=== PATIENT | female | born 1985 | race African-American/Black ===

== ENCOUNTER 2016-12-04 15:45 | Emergency (ER) | payer SELFPAY ==
[2016-12-04 15:49] VITALS: BMI 27.8
--- NOTE | 2016-12-04 17:08 | DR.GENAD ---
HPI - PCP Primary Care Physician: KIT - HPI Comment HPI Comment: PATIENT SAID CHEST PAIN RADIATES TO HER NECK. HER FOREARM IS SWOLLEN BUT NO TRAUMA REPORTED. RUNNING FEVER TODAY.BP ELEVATED IN ED. OUT OF HER BP MEDICATION FOR ONE WEEK. - Complaint/Symptoms Chief Complaint Doctors Comments: WEAKNESS LEFT FOREARM AND CHEST TIGHTNESS THAT STARTED AT WORK TODAY BEFORE COMING. Chief Complaint:: PT. STATES SHE WAS AT WORK AND LOST FEELING IN HER RIGHT HAND. PT. NOTICED HER RIGHT ARM BEING SWOLLEN, DENIES INJURY. PT. C/O CHEST TIGHTNESS/PRESSURE THAT RADIATES TO HER THROAT. 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 Surgical History Comment: TUBAL LIGATION - Family History History of Family Medical Conditions: Yes Family Medical History: Diabetes Mellitus, Hypertension - Social History Does patient currently use any type of tobacco product: Yes Have you used tobacco products in the last 12 months: Yes Does any household member use tobacco: No Alcohol Use: Occasionally Do you use any recreational Drugs:: No Lives With: Family Lives Where: Home - infectious screening In the last 2 months have you had wt loss of >10#?: NO Have you had fever, night sweats or hemotysis?: No Have you traveled outside the country in the last 6 months?: No Isolation: Standard ROS - Review of Systems Constitutional: Weakness (RUE WEAKNESS.). negative: Chills, Fever, Fatigue, Loss of Appetite Eyes: No Symptoms Reported. negative: Eye Pain, Discharge ENTM: No Symptoms Reported. negative: Ear Pain, Nose Discharge, Nose Congestion , Throat Pain Respiratoy: No Symptoms Reported. negative: Productive Cough, Non-Productive Cough, Short of Breath, Wheezing, Hemoptysis Cardiovascular: No Symptoms Reported. negative: Chest Pain Gastrointestinal/Abdominal: Nausea. negative: Abdominal Pain, Diarrhea, Vomiting Genitourinary: No Symptoms Reported. negative: Dysuria, Frequency, Hematuria Neurological: No Symptoms Reported, Headache, Weakness Musculoskeletal: Forearm Integumentary: No Symptoms Reported Hematologic/Lymphatic: No Symptoms Reported Endocrine: No Symptoms Reported All Other Systems: Reviewed and Negative PE - Vital Signs Vitals: Temperature 98.0 F Pulse Rate [Left Brachial] 70 Pulse Rate 74 Respiratory Rate 18 Blood Pressure [Left Arm] 171/90 Blood Pressure 202/103 O2 Sat by Pulse Oximetry 99 - General Limitations: No Limitations General Appearance: Alert - Head Head Exam: Normal Inspection - Eyes Eye exam: Normal Appearance - ENT ENT Exam: Normal External Ear Exam External Ear Exam: Normal External Inspection TM/Canal Exam: Bilateral Normal Nose Exam: Normal Nose Exam Mouth Exam: Normal Inspection Throat Exam: Normal Inspection - Neck Neck Exam: Trachea Midline - Chest Chest Inspection: Symmetric Chest Wall Rise - Respiratory Respiratory Exam: Normal Lung Sounds Bilat Respiratory Exam: Bilateral Clear to Auscultation - Cardiovascular Cardiovascular Exam: Regular Rate, Normal Rhythm, Normal Heart Sounds MDM - Differential Diagnosis Differential Diagnosis: HYPERTENSION, CHEST PAIN, RUE PARESTHESIA/WEAKNESS. Course - Treatment Treatment: SEE ORDERS. BP DECREASING WITH PO CLONIDINE. PATIENT FELLING BETTER. CHEST TIGHTNESS RESOLVE.RUE PARESTHESIA RESOLVE. - Education/Counseling Education/Counseling: Patient, Education Educated On: Treatment, Diagnosis, Needs for Follow Up ROR - Labs Reviewed Laboratory Results Reviewed?: Yes Result Diagrams: 12/04/16 17:26 12/04/16 17: Laboratory: WBC 7.5 X10^3/uL (3.6-10.0) 12/04/16 17: RBC 4.16 X10^6/uL (3.5-5.4) 12/04/16 17: Hgb 12.9 g/dL (12.0-16.0) 12/04/16 17: Hct 38.3 % (36.0-47.0) 12/04/16 17: MCV 92.1 fL (80.0-100.0) 12/04/16 17: MCH 31.0 pg (27.0-34.0) 12/04/16 17: MCHC 33.7 g/dL (33.0-35.0) 12/04/16 17: RDW 13.4 % (11.6-16.5) 12/04/16 17: Plt Count 221 X10^3/uL (150.0-450.0) 12/04/16 17: MPV 9.6 fL (7.4-11.0) 12/04/16 17:26 Neut % 51.6 % (42.0-75.0) 12/04/16 17: Lymph % 38.5 % (21.0-51.0) 12/04/16 17: Hale % 6.5 % (0.0-13.0) 12/04/16 17: Eos % 2.9 % (0.9-2.9) 12/04/16 17: Baso % 0.5 % (0.2-1.0) 12/04/16 17: Neut # 3.9 x10^3/uL (2.2-4.8) 12/04/16 17: Lymph # 2.9 X10^3/uL (1.3-2.9) 12/04/16 17: Hale # 0.5 x10^3/uL (0.3-0.8) 12/04/16 17: Eos # 0.2 x10^3/uL (0.0-0.2) 12/04/16 17: Baso # 0.0 X10^3/uL (0.0-0.1) 12/04/16 17: Absolute Nucleated RBC 0.0 /100WBC 12/04/16 17: Sodium 142 mmol/L (136-145) 12/04/16 17: Corrected Sodium TNP 12/04/16 17: Potassium 3.7 mmol/L (3.5-5.1) 12/04/16 17: Chloride 106 mmol/L (98-107) 12/04/16 17: Carbon Dioxide 29.7 mmol/L (21-32) 12/04/16 17: BUN 15 mg/dL (7-18) 12/04/16 17: Creatinine 0.88 mg/dL (0.55-1.02) 12/04/16 17:26 Est GFR (MDRD) Af Amer > 60 (>60) 12/04/16 17:26 Est GFR (MDRD) Non-Af > 60 (>60) 12/04/16 17:26 Glucose 76 mg/dL (65-99) 12/04/16 17: Calcium 8.6 mg/dL (8.5-10.1) 12/04/16 17:26 Corrected Calcium TNP 12/04/16 17:26 Total Bilirubin 0.30 mg/dL (0.2-1.0) 12/04/16 17:26 AST 16 Units/L (15-37) 12/04/16 17: ALT 19 Units/L (12-78) 12/04/16 17:26 Alkaline Phosphatase 65 Units/L (46-116) 12/04/16 17: Creatine Kinase 214 Units/L (26-192) H 12/04/16 17:26 CK-MB (CK-2) 2.0 ng/mL (0-4.0) 12/04/16 17: CK/CKMB % Calc 0.9 % (<4) 12/04/16 17: Troponin I < 0.02 ng/mL (0-1.5) 12/04/16 17:26 Total Protein 7.9 g/dL (6.4-8.2) 12/04/16 17: Albumin 4.2 g/dL (3.4-5.0) 12/04/16 17: Globulin 3.7 g/dL (2.5-4.5) 12/04/16 17: Albumin/Globulin Ratio 1.1 Ratio (1.1-2.1) 12/04/16 17:26 - XRAY XRAY Interpreted by: Radiologist XRAY Findings: REPORT DISCUSS WITH PATIENT. - EKG Rhythm: NSR (EKG NOTED) - Diagnosis Discharge Problem: Chest pain Qualifiers: Chest pain type: unspecified Qualified Code(s): R07.9 - Chest pain, unspecified Hypertension Qualifiers: Hypertension type: essential hypertension Qualified Code(s): I10 - Essential ( primary) hypertension - Discharge Plan Disposition: HOME, SELF-CARE Condition: Stable Prescriptions: Lisinopril/Hydrochlorothiazide [Lisinopril/Hydrochlorothi 20-12.5 mg] 1 tab PO DAILY #30 tab - Follow ups/Referrals Follow ups/Referrals: PETE PANTOJA [Primary Care Provider] - 3 days - Instructions Instructions: Hypertension, Chest Pain Observation Additional Instructions: RETURN TO ED IF WORSE.
[2016-12-04] MEDS ORDERED: CATAPRES TAB 0.2 MG PO ONE (17:18)
[2016-12-04] MEDS ORDERED: CATAPRES TAB 0.2 MG ONE (17:21)
[2016-12-04 17:38] LABS: BASOPHILS % (AUTO) 0.5 % (0.2-1.0); EOSINOPHILS # (AUTO) 0.2 x10^3/uL (0.0-0.2); EOSINOPHILS % (AUTO) 2.9 % (0.9-2.9); HEMATOCRIT 38.3 % (36.0-47.0); HEMOGLOBIN 12.9 g/dL (12.0-16.0); LYMPHOCYTES # (AUTO) 2.9 X10^3/uL (1.3-2.9); LYMPHOCYTES % (AUTO) 38.5 % (21.0-51.0); MEAN CORPUSCULAR HGB CONC 33.7 g/dL (33.0-35.0); MEAN CORPUSCULAR VOLUME 92.1 fL (80.0-100.0); MEAN PLATELET VOLUME 9.6 fL (7.4-11.0); MONOCYTES # (AUTO) 0.5 x10^3/uL (0.3-0.8); MONOCYTES % (AUTO) 6.5 % (0.0-13.0); NEUTROPHILS # (AUTO) 3.9 x10^3/uL (2.2-4.8); NEUTROPHILS % (AUTO) 51.6 % (42.0-75.0); PLATELET COUNT 221 X10^3/uL (150.0-450.0); RED BLOOD COUNT 4.16 X10^6/uL (3.5-5.4); RED CELL DISTRIBUTION WIDTH 13.4 % (11.6-16.5); WHITE BLOOD COUNT 7.5 X10^3/uL (3.6-10.0)
[2016-12-04 17:54] LABS: BLOOD UREA NITROGEN 15 mg/dL (7-18); CALCIUM 8.6 mg/dL (8.5-10.1); CARBON DIOXIDE 29.7 mmol/L (21-32); CHLORIDE 106 mmol/L (98-107); CREATININE 0.88 mg/dL (0.55-1.02); GLUCOSE 76 mg/dL (65-99); SODIUM 142 mmol/L (136-145); TROPONIN I < 0.02 ng/mL (0-1.5); eGFR BLACK RACES > 60 (>60); eGFR NON BLACK RACES > 60 (>60)
[2016-12-04 17:58] LABS: ALANINE AMINOTRANSFERASE 19 Units/L (12-78); ALBUMIN 4.2 g/dL (3.4-5.0); ALKALINE PHOSPHATASE 65 Units/L (46-116); ASPARTATE AMINO TRANSFERASE 16 Units/L (15-37); CREATINE KINASE 214 Units/L (26-192); TOTAL PROTEIN 7.9 g/dL (6.4-8.2)
--- NOTE | 2016-12-04 18:17 | CT ---
CT head without contrast Indication: Right-sided headache, hypertension Comparison: None Technique: CT images of the head were obtained without contrast. Automatic exposure control was util ized. Findings: The ventricles and sulci appear normal. No acute bleed, mass effect, or abnormal extra-axi al collection is identified. No significant skeletal abnormality. The visualized paranasal sinuses a nd mastoid air cells are clear. Impression: No acute intracranial abnormality. Reported By:
[2016-12-04 18:19] LABS: CKMB % 0.9 % (<4)
--- NOTE | 2016-12-04 18:20 | RAD ---
HISTORY: Portable chest. Study: Chest pain. Comparison: Chest x-ray dated July 10, 2016. Findings: The trachea is midline. The cardiac silhouette is unremarkable. The lungs are clear without focal infiltrate or effusion. The bony thorax is unremarkable. IMPRESSION: 1. No acute cardiopulmonary disease. Reported By:
[2016-12-04 18:37] VITALS: BP 171/90
== END 2016-12-04 19:07 | disposition home or self-care (01) ==
LOC: ER 15:58
DX: R07.89 Other chest pain (principal); I10 Essential (primary) hypertension; R51 Headache
CPT/HCPCS: 36415; 70450; 71010; 80053; 82550; 82553; 84484; 85025; 93005; 93010; 99283

== ENCOUNTER 2017-03-29 10:11 | Emergency (ER) | payer SELFPAY ==
[2017-03-29 10:21] VITALS: BMI 29.4
--- NOTE | 2017-03-29 10:34 | DR.GENAD ---
HPI - PCP Primary Care Physician: nfd - Complaint/Symptoms Chief Complaint:: pt stated she had a head ache, left knee pain, blurred vision since last night and when she got to work she had to leave due to the pain. Self Treatment fo Chief Complaint: patient stated she took her last bp medication last week and she has been out since. 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 - Family History History of Family Medical Conditions: Yes Family Medical History: Diabetes Mellitus, Hypertension - Social History Does patient currently use any type of tobacco product: Yes Have you used tobacco products in the last 12 months: Yes Type of Tobacco Use: Cigarettes How many years tobacco product used: 10 Does any household member use tobacco: No Alcohol Use: None Do you use any recreational Drugs:: No Lives With: Family Lives Where: Home - infectious screening In the last 2 months have you had wt loss of >10#?: NO Have you had fever, night sweats or hemotysis?: No Have you traveled outside the country in the last 6 months?: No Isolation: Standard PE - Vital Signs Vitals: Temperature 98.7 F Pulse Rate [Left Brachial] 66 Pulse Rate 74 Respiratory Rate 16 Blood Pressure [Left Arm] 173/89 Blood Pressure 177/106 O2 Sat by Pulse Oximetry 99 - Discharge Plan Disposition: 01 HOME, SELF-CARE Condition: Stable Prescriptions: Ibuprofen [MOTRIN TAB 800 MG *] 800 mg PO Q8H PRN #30 tab PRN Reason: Pain/Inflammation Lisinopril/Hydrochlorothiazide [Lisinopril/Hydrochlorothi 20-12.5 mg] 1 tab PO DAILY #30 tab - Follow ups/Referrals Follow ups/Referrals: NFD,None [Primary Care Provider] - 3 days - Instructions Instructions: Osteoarthritis, Hypertension, [id number], Knee Pain, Easy-to- Read Additional Instructions: RETURN TO ED IF WORSE.
[2017-03-29] MEDS ORDERED: TORADOL 60 MG VIAL IM ONE (10:56)
[2017-03-29] MEDS ORDERED: TORADOL 60 MG VIAL ONE (10:57)
--- NOTE | 2017-03-29 11:18 | RAD ---
Examination: Left knee, two views History: Knee pain Findings: There is no evidence for fracture, dislocation or synovial effusion. The patella is in norm al position. There is narrowing of the medial compartment with marginal osteophyte formation. No path ologic calcification or osteolytic process is noted. Impression: No acute abnormality identified. Mild osteoarthritis medial compartment. Reported By:
[2017-03-29] MEDS ORDERED: NIFEDIPINE CAP 10 MG ONE (11:27)
[2017-03-29] MEDS ORDERED: NIFEDIPINE CAP 10 MG PO ONE (11:34)
[2017-03-29] MEDS ORDERED: CATAPRES TAB 0.2 MG PO ONE (12:32)
[2017-03-29] MEDS ORDERED: CATAPRES TAB 0.2 MG ONE (12:32)
[2017-03-29 13:28] VITALS: BP 173/89
== END 2017-03-29 13:36 | disposition home or self-care (01) ==
LOC: ER 10:21
DX: R51 Headache (principal); M25.562 Pain in left knee; H53.8 Other visual disturbances; M19.90 Unspecified osteoarthritis, unspecified site; I10 Essential (primary) hypertension
CPT/HCPCS: 73560; 96372; 99282; J1885

== ENCOUNTER 2017-05-14 08:05 | Emergency (ER) | payer SELFPAY ==
[2017-05-14] MEDS ORDERED: DILAUDID INJ ONE ×3 (08:11→11:49)
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
[2017-05-14 08:24] VITALS: BMI 29.9
[2017-05-14] MEDS ORDERED: DILAUDID INJ IVP ONE ×3 (08:25→11:49)
[2017-05-14 08:45] LABS: BASOPHILS % (AUTO) 0.5 % (0.2-1.0); EOSINOPHILS # (AUTO) 0.1 x10^3/uL (0.0-0.2); EOSINOPHILS % (AUTO) 1.4 % (0.9-2.9); HEMATOCRIT 38.2 % (36.0-47.0); LYMPHOCYTES # (AUTO) 1.6 X10^3/uL (1.3-2.9); MEAN CORPUSCULAR HEMOGLOBIN 31.7 pg (27.0-34.0); MEAN CORPUSCULAR HGB CONC 34.1 g/dL (33.0-35.0); MEAN PLATELET VOLUME 9.6 fL (7.4-11.0); MONOCYTES # (AUTO) 0.5 x10^3/uL (0.3-0.8); MONOCYTES % (AUTO) 5.3 % (0.0-13.0); NEUTROPHILS # (AUTO) 6.2 x10^3/uL (2.2-4.8); NEUTROPHILS % (AUTO) 73.8 % (42.0-75.0); PLATELET COUNT 225 X10^3/uL (150.0-450.0); RED BLOOD COUNT 4.11 X10^6/uL (3.5-5.4); RED CELL DISTRIBUTION WIDTH 13.6 % (11.6-16.5); WHITE BLOOD COUNT 8.5 X10^3/uL (3.6-10.0)
[2017-05-14 08:55] LABS: ALANINE AMINOTRANSFERASE 17 Units/L (12-78); ALBUMIN 3.8 g/dL (3.4-5.0); ALKALINE PHOSPHATASE 64 Units/L (46-116); ASPARTATE AMINO TRANSFERASE 17 Units/L (15-37); BLOOD UREA NITROGEN 19 mg/dL (7-18); CALCIUM 8.1 mg/dL (8.5-10.1); CARBON DIOXIDE 24.5 mmol/L (21-32); CHLORIDE 107 mmol/L (98-107); SODIUM 141 mmol/L (136-145); TOTAL PROTEIN 7.2 g/dL (6.4-8.2); eGFR BLACK RACES > 60 (>60); eGFR NON BLACK RACES > 60 (>60)
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
[2017-05-14] MEDS ORDERED: CLEOCIN 600 MG IV PREMIX 600 MG/50 ML BAG IV ONE (11:11)
[2017-05-14] MEDS ORDERED: ADACEL TDaP IM ONE ×2 (11:12→11:31)
[2017-05-14 11:17] VITALS: BP 183/94
[2017-05-14] MEDS ORDERED: CLEOCIN VIAL 600 MG ONE (11:31)
[2017-05-14] MEDS ORDERED: NS 100 ML IV 100 ML IV ONE (11:33)
[2017-05-14] MEDS ORDERED: NS 1000 ML 1,000 ML ONE (11:55)
[2017-05-14 12:25] LABS: BILIRUBIN,URINE NEGATIVE (NEGATIVE); BLOOD/HEMOGLOBIN,URINE NEGATIVE (NEGATIVE); GLUCOSE, URINE NEGATIVE (NEGATIVE); KETONES,URINE NEGATIVE (NEGATIVE); LEUKOCYTE ESTERASE ,URINE 1+ (NEGATIVE); NITRITES,URINE NEGATIVE (NEGATIVE); PROTEIN,URINE 2+ (NEGATIVE); UROBILINOGEN,URINE NORMAL (NORMAL)
[2017-05-14 12:35] LABS: APPEARANCE,URINE CLEAR (CLEAR); BACTERIA,URINE NEGATIVE /HPF (NEGATIVE); COLOR,URINE YELLOW (YELLOW); RBC,URINE RARE /HPF (NEGATIVE); SQUAMOUS EPITHELIAL CELL,UR RARE /HPF (NEGATIVE)
[2017-05-14 12:36] LABS: AMORPHOUS SEDIMENT,UR 1+ /HPF (NEGATIVE); MUCUS,URINE FEW /HPF (NEGATIVE)
== END 2017-05-14 12:04 | disposition short-term general hospital (02) ==
LOC: ER 08:10
DX: S72.351C Displaced comminuted fracture of shaft of right femur, initial encounter for open fracture type IIIA, IIIB, or IIIC (principal); S00.83XA Contusion of other part of head, initial encounter; S39.012A Strain of muscle, fascia and tendon of lower back, initial encounter; S13.4XXA Sprain of ligaments of cervical spine, initial encounter; T14.8XXA Other injury of unspecified body region, initial encounter; V87.7XXA Person injured in collision between other specified motor vehicles (traffic), initial encounter
CPT/HCPCS: 36415; 51702; 70450; 71250; 72125; 72131; 72192; 73700; 80053; 81001; 85025; 90471; 96365; 96374; 96375; 99284; 99285; A4222; J1170; S0077

== ENCOUNTER 2017-06-22 00:33 | Emergency (ER) | payer OTHER ==
[2017-06-22 00:54] VITALS: BP 148/82; BMI 28.5
[2017-06-22] MEDS ORDERED: ASPIRIN PO ONE (01:07)
[2017-06-22] MEDS ORDERED: NITROSTAT SL PRN (01:07)
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
[2017-06-22] MEDS ORDERED: NS 1000 ML 1,000 ML ONE (01:32)
[2017-06-22] MEDS ORDERED: ASPIRIN ONE (01:33)
[2017-06-22 01:36] LABS: BASOPHILS % (AUTO) 0.6 % (0.2-1.0); EOSINOPHILS # (AUTO) 0.2 x10^3/uL (0.0-0.2); EOSINOPHILS % (AUTO) 3.1 % (0.9-2.9); HEMATOCRIT 32.1 % (36.0-47.0); HEMOGLOBIN 10.9 g/dL (12.0-16.0); LYMPHOCYTES # (AUTO) 2.4 X10^3/uL (1.3-2.9); LYMPHOCYTES % (AUTO) 33.3 % (21.0-51.0); MEAN CORPUSCULAR HEMOGLOBIN 31.3 pg (27.0-34.0); MEAN CORPUSCULAR HGB CONC 33.9 g/dL (33.0-35.0); MEAN CORPUSCULAR VOLUME 92.5 fL (80.0-100.0); MEAN PLATELET VOLUME 9.2 fL (7.4-11.0); MONOCYTES # (AUTO) 0.3 x10^3/uL (0.3-0.8); MONOCYTES % (AUTO) 4.7 % (0.0-13.0); NEUTROPHILS # (AUTO) 4.2 x10^3/uL (2.2-4.8); NEUTROPHILS % (AUTO) 58.3 % (42.0-75.0); PLATELET COUNT 199 X10^3/uL (150.0-450.0); RED BLOOD COUNT 3.47 X10^6/uL (3.5-5.4); RED CELL DISTRIBUTION WIDTH 14.8 % (11.6-16.5); WHITE BLOOD COUNT 7.2 X10^3/uL (3.6-10.0)
--- NOTE | 2017-06-22 01:40 | RAD ---
AP Chest Indication: Chest pain Comparison: 12/04/2016 Findings: The trachea is midline. The cardiac silhouette is unremarkable. The lungs are clear without focal i nfiltrate or effusion. The bony thorax is unremarkable. IMPRESSION: 1. No acute cardiopulmonary abnormality. Reported By:
[2017-06-22 01:54] LABS: BLOOD UREA NITROGEN 16 mg/dL (7-18); CARBON DIOXIDE 24.9 mmol/L (21-32); CHLORIDE 109 mmol/L (98-107); CREATININE 0.66 mg/dL (0.55-1.02); SODIUM 143 mmol/L (136-145); TROPONIN I < 0.02 ng/mL (0-1.5); eGFR BLACK RACES > 60 (>60); eGFR NON BLACK RACES > 60 (>60)
[2017-06-22 01:58] LABS: ALANINE AMINOTRANSFERASE 23 Units/L (12-78); ALBUMIN 3.3 g/dL (3.4-5.0); ALKALINE PHOSPHATASE 94 Units/L (46-116); ASPARTATE AMINO TRANSFERASE 11 Units/L (15-37); CKMB % 1.4 % (<4); COR CA(FOR HYPOALB) 8.6 mg/dL (8.5-10.1); CREATINE KINASE 70 Units/L (26-192); CREATINE KINASE MB < 1.0 ng/mL (0-4.0); MAGNESIUM 1.6 mg/dL (1.7-2.9); TOTAL PROTEIN 6.8 g/dL (6.4-8.2)
[2017-06-22] MEDS ORDERED: NS 1000 ML 1,000 ML IV SCH (02:00)
[2017-06-22] MEDS ORDERED: NS 100 ML IV 100 ML IV ONE ×2 (02:26→05:39)
--- NOTE | 2017-06-22 04:02 | CT ---
CTA chest with contrast per pulmonary embolism protocol Indication: Chest pain with elevated D-dimer Comparison: None available Technique: Multiple axial images of the chest were obtained from the thoracic inlet to the upper abdo men after the administration of IV contrast.Coronal and Sagittal MIP images were also provided. Findings: No central or segmental pulmonary arterial filling defect is identified. There is normal caliber of t he pulmonary artery without CT evidence or right heart strain. The heart size is within normal limits without pericardial effusion. No mediastinal, hilar or axillar y adenopathy. The lungs are without focal airspace consolidation, pleural effusion or pneumothorax. B ilateral peribronchial thickening without peribronchial consolidation represents acute or chronic bro nchitis changes. Visualized upper abdomen and osseous structures are without acute abnormality. IMPRESSION: 1. No PTE identified. 2. Bronchitis without bronchopneumonia. Reported By:
[2017-06-22] MEDS ORDERED: ROCEPHIN 1 GM IV PREMIX 1 GM/50 ML IV.SOLN. IV ONE (05:38)
[2017-06-22] MEDS ORDERED: ROCEPHIN VIAL 1 GM ONE (05:43)
== END 2017-06-22 06:25 | disposition home or self-care (01) ==
LOC: ER 00:33
DX: R07.89 Other chest pain (principal); J20.8 Acute bronchitis due to other specified organisms; E87.6 Hypokalemia
CPT/HCPCS: 36415; 71045; 71275; 80053; 82550; 82553; 83735; 84484; 85025; 85378; 85610; 85730; 87502; 87651; 93005; 93010; 96365; 96367; 96374; 99283; A4222; J0696

== ENCOUNTER 2017-09-02 14:54 | Emergency (ER) | payer OTHER ==
[2017-09-02 15:06] VITALS: BMI 30.8
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
[2017-09-02] MEDS ORDERED: TORADOL 60 MG VIAL IM ONE ×2 (15:52→22:58)
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
[2017-09-02] MEDS ORDERED: TORADOL 60 MG VIAL ONE ×2 (16:45→22:59)
[2017-09-02] MEDS ORDERED: NIFEDIPINE CAP 10 MG ONE (22:12)
[2017-09-02] MEDS ORDERED: NIFEDIPINE CAP 10 MG PO ONE (22:14)
[2017-09-03] MEDS ORDERED: CATAPRES TAB 0.1 MG PO ONE (00:05)
[2017-09-03] MEDS ORDERED: CATAPRES TAB 0.1 MG ONE (00:08)
[2017-09-03 00:13] VITALS: BP 150/80
== END 2017-09-03 00:45 | disposition home or self-care (01) ==
LOC: ER 15:12
DX: M79.651 Pain in right thigh (principal); I10 Essential (primary) hypertension; Z47.89 Encounter for other orthopedic aftercare
CPT/HCPCS: 36415; 73552; 85378; 96372; 99282; J1885

== ENCOUNTER 2017-09-30 09:32 | Emergency (ER) | payer OTHER ==
[2017-09-30 09:36] VITALS: BMI 32.1
--- NOTE | 2017-09-30 10:07 | DR.CP ---
HPI - Time Seen Time seen: 10:05 - PCP Primary Care Physician: KIT - HPI Comment HPI Comment: PATIENT IS HEALING FROM RT FEMUR FRACTURE. RLE SWOLLEN. NO NEW TRAUMA. DENIES FEVER. - Complaint Chief Complaint Doctor Comments: PATIENT HAVING LEFT SHRP CHEST PAIN, SOB AND DIZZINESS THAT STARTED ONE HOUR PRIOR TO COMING TO ED. Chief Complaint:: PT C/O LT SIDED CHEST PAIN THAT STARTED 1 HOUR AGO. PT STATES SHE HAS BEEN DIZZY ALSO. NOTED PT TO HAVE CHEST WALL TENDERNESS - Reviewed Nurses Notes Review: Yes - Source History Provided: Patient - Mode of Arrival Mode of Arrival: Ambulatory - Timing Onset of Chief Complaint: 09/30/17 Came on: Suddenly Pain: Present Now - Duration Duration: Constant Duration: Hours - Location Location of Chest Pain: Left, Chest Chest Pain Radiation Location: None - Context Onset: At rest Cardiac Risk Factors: Other (HEALING RT FEMUR FRACTURE.) PE Risk Factors: Immobilization History of: None Prehospital Care: None - Quality Quality: Sharp - Severity Severity: Moderate - Modifying Factors Worsens: Nothing Impoves: Nothing - Associated Signs and Symptoms Associated Signs and Symptoms: Shortness of Breath, Calf Pain/Swelling (AND THIGH SWELLING.) PMH - PMH Past Medical History: Yes Past Medical History: Hypertension Past Surgical History: Yes 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, 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 Past Surgical History Comment: TUBALIGATION AND RT FEMUR FIXATION - Family History History of Family Medical Conditions: Yes Family Medical History: Diabetes Mellitus, Hypertension - Social History Does patient currently use any type of tobacco product: Yes Have you used tobacco products in the last 12 months: Yes Type of Tobacco Use: Cigarettes Does any household member use tobacco: Yes Alcohol Use: None Do you use any recreational Drugs:: No Lives With: Family Lives Where: Home - infectious screening In the last 2 months have you had wt loss of >10#?: NO Have you had fever, night sweats or hemotysis?: No Have you traveled outside the country in the last 6 months?: No Isolation: Standard ROS - Review of Systems Constitutional: No Symptoms Reported Eyes: No Symptoms Reported ENTM: No Symptoms Reported Respiratoy: Short of Breath Cardiovascular: Chest Pain, Edema Gastrointestinal/Abdominal: No Symptoms Reported Genitourinary: No Symptoms Reported Neurological: No Symptoms Reported Musculoskeletal: No Symptoms Reported Integumentary: No Symptoms Reported Hematologic/Lymphatic: No Symptoms Reported Endocrine: No Symptoms Reported All Other Systems: Reviewed and Negative PE - Vitals Vitals: Temperature 98.9 F Pulse Rate [Apical] 56 Pulse Rate 72 Respiratory Rate 17 Blood Pressure [Left Arm] 162/92 Blood Pressure 159/97 O2 Sat by Pulse Oximetry 97 - General Limitations: No Limitations General Appearance: Alert - Head Head Exam: Normal Inspection - Eyes Eye exam: Normal Appearance - ENT ENT Exam: Normal External Ear Exam - Chest Chest Inspection: Symmetric Chest Wall Rise - Respiratory Respiratory Exam: Normal Lung Sounds Bilat Respiratory Exam: Bilateral Rhonchi, Lower Rhonchi - Cardiovascular Cardiovascular Exam: Regular Rate, Normal Rhythm, Normal Heart Sounds Pulse: Normal, Radial, Femoral Edema: Normal - Abdominal Exam Abdominal Exam: Normal Bowel Sounds, Soft. negative: Tenderness - Extremities Extremities Exam: Tenderness (SWELLING AND TENDERNESS RLE.) - Back Back Exam: Normal Inspection - Neurologic Neurological Exam: Alert, Oriented X3 - Psychiatric Psychiatric Exam: Normal Affect, Normal Mood - Skin Skin Exam: Normal Color MDM - Differential Diagnosis Differential Diagnosis: Angina, Costochondritis, Esophageal Reflux/Spasm, Gastritis, Myocardial Infarction, Pericarditis, Pleuritis, Pancreatitis, Pneumonia, Pneumothorax, Pulmonary Embolus Course - Treatment Treatment: SEE ORDERS. CP SPONTANOUSLY RESOLVE WHILE IN ED. - Reevaluation 1st: Improved - Education/Counseling Education/Counseling: Patient, Education Educated On: Diagnosis, Needs for Follow Up ROR - Labs Reviewed Laboratory Results Reviewed?: Yes Result Diagrams: 09/30/17 10:25 09/30/17 10:25 Laboratory: WBC 7.1 X10^3/uL (3.6-10.0) 09/30/17 10:25 RBC 3.90 X10^6/uL (3.5-5.4) 09/30/17 10:25 Hgb 12.0 g/dL (12.0-16.0) 09/30/17 10:25 Hct 35.1 % (36.0-47.0) L 09/30/17 10:25 MCV 89.9 fL (80.0-100.0) 09/30/17 10:25 MCH 30.8 pg (27.0-34.0) 09/30/17 10:25 MCHC 34.3 g/dL (33.0-35.0) 09/30/17 10:25 RDW 13.9 % (11.6-16.5) 09/30/17 10:25 Plt Count 296 X10^3/uL (150.0-450.0) 09/30/17 10:25 MPV 8.5 fL (7.4-11.0) 09/30/17 10:25 Neut % (Auto) 66.2 % (42.0-75.0) 09/30/17 10:25 Lymph % (Auto) 23.1 % (21.0-51.0) 09/30/17 10:25 [place] % (Auto) 7.3 % (0.0-13.0) 09/30/17 10:25 Eos % (Auto) 2.6 % (0.9-2.9) 09/30/17 10:25 Baso % (Auto) 0.8 % (0.2-1.0) 09/30/17 10:25 Neut # (Auto) 4.7 x10^3/uL (2.2-4.8) 09/30/17 10:25 Lymph # (Auto) 1.6 X10^3/uL (1.3-2.9) 09/30/17 10:25 [place] # (Auto) 0.5 x10^3/uL (0.3-0.8) 09/30/17 10:25 Eos # (Auto) 0.2 x10^3/uL (0.0-0.2) 09/30/17 10:25 Baso # (Auto) 0.1 X10^3/uL (0.0-0.1) 09/30/17 10:25 Absolute Nucleated RBC 0.0 /100WBC 09/30/17 10:25 D-Dimer 2970 ng/mL (0-400) H* 09/30/17 10:25 Sodium 139 mmol/L (136-145) 09/30/17 10:25 Corrected Sodium TNP 09/30/17 10:25 Potassium 3.9 mmol/L (3.5-5.1) 09/30/17 10:25 Chloride 106 mmol/L (98-107) 09/30/17 10:25 Carbon Dioxide 28.6 mmol/L (21-32) 09/30/17 10:25 BUN 17 mg/dL (7-18) 09/30/17 10:25 Creatinine 0.78 mg/dL (0.55-1.02) 09/30/17 10:25 Est GFR (MDRD) Af Amer > 60 (>60) 09/30/17 10:25 Est GFR (MDRD) Non-Af > 60 (>60) 09/30/17 10:25 Glucose 86 mg/dL (65-99) 09/30/17 10:25 Calcium 7.9 mg/dL (8.5-10.1) L 09/30/17 10:25 Corrected Calcium TNP 09/30/17 10:25 Total Bilirubin 0.20 mg/dL (0.2-1.0) 09/30/17 10:25 AST 11 Units/L (15-37) L 09/30/17 10:25 ALT 18 Units/L (12-78) 09/30/17 10:25 Alkaline Phosphatase 80 Units/L (46-116) 09/30/17 10:25 Creatine Kinase 103 Units/L (26-192) 09/30/17 10:25 CK-MB (CK-2) < 1.0 ng/mL (0-4.0) 09/30/17 10:25 CK/CKMB % Calc 1.0 % (<4) 09/30/17 10:25 Troponin I < 0.02 ng/mL (0-1.5) 09/30/17 10:25 Total Protein 7.2 g/dL (6.4-8.2) 09/30/17 10:25 Albumin 3.5 g/dL (3.4-5.0) 09/30/17 10:25 Globulin 3.7 g/dL (2.5-4.5) 09/30/17 10:25 Albumin/Globulin Ratio 0.9 Ratio (1.1-2.1) L 09/30/17 10:25 H. pylori IgG Antibody Negative (NEGATIVE) 09/30/17 10:25 - XRAY XRAY Interpreted by: Radiologist XRAY Findings: REPORT DISCUSS WITH PATIENT. - EKG Rhythm: NSR (EKG NOTED.) - Diagnosis Discharge Problem: Chest pain, Bronchitis - Discharge Plan Disposition: 01 HOME, SELF-CARE Condition: Stable Prescriptions: Amoxicillin [Amoxil 875 mg] 875 mg PO Q12H #20 tab Benzonatate [TESSALON PERLES *] 200 mg PO TID PRN #30 cap PRN Reason: Cough - Follow ups/Referrals Follow ups/Referrals: PETE PANTOJA [Primary Care Provider] - 3 days - Instructions Instructions: Acute Bronchitis, Adult, [id number], Nonspecific Chest Pain, [id number]
[2017-09-30 10:33] LABS: BASOPHILS # (AUTO) 0.1 X10^3/uL (0.0-0.1); BASOPHILS % (AUTO) 0.8 % (0.2-1.0); EOSINOPHILS # (AUTO) 0.2 x10^3/uL (0.0-0.2); EOSINOPHILS % (AUTO) 2.6 % (0.9-2.9); HEMATOCRIT 35.1 % (36.0-47.0); LYMPHOCYTES # (AUTO) 1.6 X10^3/uL (1.3-2.9); LYMPHOCYTES % (AUTO) 23.1 % (21.0-51.0); MEAN CORPUSCULAR HEMOGLOBIN 30.8 pg (27.0-34.0); MEAN CORPUSCULAR HGB CONC 34.3 g/dL (33.0-35.0); MEAN CORPUSCULAR VOLUME 89.9 fL (80.0-100.0); MEAN PLATELET VOLUME 8.5 fL (7.4-11.0); MONOCYTES # (AUTO) 0.5 x10^3/uL (0.3-0.8); MONOCYTES % (AUTO) 7.3 % (0.0-13.0); NEUTROPHILS # (AUTO) 4.7 x10^3/uL (2.2-4.8); NEUTROPHILS % (AUTO) 66.2 % (42.0-75.0); PLATELET COUNT 296 X10^3/uL (150.0-450.0); RED CELL DISTRIBUTION WIDTH 13.9 % (11.6-16.5); WHITE BLOOD COUNT 7.1 X10^3/uL (3.6-10.0)
[2017-09-30 10:52] LABS: BLOOD UREA NITROGEN 17 mg/dL (7-18); CALCIUM 7.9 mg/dL (8.5-10.1); CARBON DIOXIDE 28.6 mmol/L (21-32); CHLORIDE 106 mmol/L (98-107); CREATININE 0.78 mg/dL (0.55-1.02); SODIUM 139 mmol/L (136-145); TROPONIN I < 0.02 ng/mL (0-1.5); eGFR BLACK RACES > 60 (>60); eGFR NON BLACK RACES > 60 (>60)
[2017-09-30 10:54] LABS: ALANINE AMINOTRANSFERASE 18 Units/L (12-78); ALBUMIN 3.5 g/dL (3.4-5.0); ALKALINE PHOSPHATASE 80 Units/L (46-116); ASPARTATE AMINO TRANSFERASE 11 Units/L (15-37); CREATINE KINASE 103 Units/L (26-192); CREATINE KINASE MB < 1.0 ng/mL (0-4.0); TOTAL PROTEIN 7.2 g/dL (6.4-8.2)
[2017-09-30] MEDS ORDERED: PEPCID TAB 20 MG PO SCH (11:00)
[2017-09-30] MEDS ORDERED: NS 100 ML IV 100 ML IV ONE (11:51)
[2017-09-30 12:03] VITALS: BP 162/92
--- NOTE | 2017-09-30 13:04 | CT ---
CT angiogram chest with contrast Indication: Left-sided chest pain started 1 hour prior. Dizziness. Chest wall tenderness. Comparison: 06/22/2017 CT angiogram chest Technique: Helical images through the chest after IV contrast. Coronal and sagittal reformats provide d. MIP images provided. Findings: Limited images through the upper abdomen shows no acute abnormality. Review of bone windows shows no osseous lesion. Chest: Heart size is normal. Aortic arch branch vessels are normal. Pulmonary artery is are patent wi th adequate bolus timing. Segmental and subsegmental vessels appear normal. No mediastinal abnormalit y seen. Small right paratracheal granuloma suspected. There is no pneumothorax, effusion or consolida tion. Minimal peribronchial thickening noted. Impression: 1. No pulmonary thromboembolus 2. Minimal peribronchial thickening could represent mild bronchitis. Reported By:
== END 2017-09-30 13:43 | disposition home or self-care (01) ==
LOC: ER 09:40
DX: R07.89 Other chest pain (principal); J40 Bronchitis, not specified as acute or chronic; R06.02 Shortness of breath; R79.1 Abnormal coagulation profile; Z72.0 Tobacco use
CPT/HCPCS: 36415; 71275; 80053; 82550; 82553; 84484; 85025; 85378; 86677; 93005; 93010; 96365; 99283; A4222

== ENCOUNTER 2018-07-06 00:22 | Observation (INO) ==
[2018-07-06] MEDS ORDERED: NITROSTAT SL PRN (00:48)
--- NOTE | 2018-07-06 01:00 | DR.CP ---
HPI Time Seen Time Seen by Provider: 07/06/18 00:43 PCP Primary Care Physician: PANTOJA Complaint Chief Complaint Doctor Comments: A 33 y/o female who states that she was awakened from sleep by central chest pain. No radiation of pain. She was dyspneic however. There was no diaphoresis or nausea/vomiting. She describes this as a pressure in her chest. There was also numbness to the face and LUE, in addition she had blurry vision. She forgot to take her BP meds on Friday morning and just took them with onset of these symptoms now. Chief Complaint:: PATIENT WAS BROUGHT IN BY [facility] BY STRETCHER WITH C/O OF CHEST PAIN TIGHTNESS, LEFT ARM NUMBNESS, LEFT EYE BLURRY AND FACE NUMBNESS. PATIENT STATES " I WAS ASLEEP AND WOKE UP WITH THE CHEST TIGHTNESS AND THEN THE FACE AND LEFT ARM NUMBNESS AND MY VISION IN MY LEFT EYE WAS NOT RIGHT. I TOOK BOTH OF MY BLOODPRESSSURE MEDICATION WHEN IT ALL STARTED. IT ALL STARTED JUNIE GHT." ASA 325MG WAS GIVEN BY EMS ENROUTE TO ED. Source History Provided: Patient and EMS Mode of Arrival Mode of Arrival: EMS Timing Onset of Chief Complaint: 07/06/18 PMH PMH Past Medical History: Yes Past Medical History: Hypertension Past Surgical History: Yes Surgical History: RECENTERER Surgery and 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 Family History History of Family Medical Conditions: Yes Family Medical History: Diabetes Mellitus and Hypertension Social History Alcohol Use: None and Occasionally Do you use any recreational Drugs:: No Lives Where: Home infectious screening Have you traveled outside the country in the last 6 months?: No ROS Review of Systems Constitutional: No Symptoms Reported Eyes: No Symptoms Reported ENTM: No Symptoms Reported Respiratoy: Short of Breath Cardiovascular: Chest Pain Gastrointestinal/Abdominal: No Symptoms Reported Genitourinary: No Symptoms Reported Neurological: Numbness (face and LUE) Musculoskeletal: No Symptoms Reported Integumentary: No Symptoms Reported Hematologic/Lymphatic: No Symptoms Reported Endocrine: No Symptoms Reported Psychiatric: No Symptoms Reported PE Vitals Vitals: Temperature 98.4 F Pulse Rate 63 Respiratory Rate 25 Blood Pressure [Left Arm] 170/82 Blood Pressure 189/90 O2 Sat by Pulse Oximetry 99 General Limitations: No Limitations General Appearance: Alert Head Head Exam: Normal Inspection, Atraumatic and Normocephalic Eyes Eye exam: Normal Appearance, PERRL and EOMI ENT ENT Exam: Normal Exam, Normal Oropharynx and Mucous Membranes Moist Chest Chest Inspection: Normal Inspection and Symmetric Chest Wall Rise Respiratory Respiratory Exam: Normal Lung Sounds Bilat and Accessory Muscle Use Cardiovascular Cardiovascular Exam: Regular Rate, Normal Rhythm, +S1 and +S2 Abdominal Exam Abdominal Exam: Normal Inspection, Normal Bowel Sounds and Soft Extremities Extremities Exam: Normal Inspection and Full ROM Neurologic Neurological Exam: Alert and Oriented X3 Psychiatric Psychiatric Exam: Normal Affect and Normal Mood Skin Skin Exam: Warm, Dry, Intact and Normal Color ROR Labs Reviewed Result Diagrams: 07/06/18 01:00 07/06/18 01:00 Laboratory: WBC 9.6 X10^3/uL (3.6-10.0) 07/06/18 01:00 RBC 4.14 X10^6/uL (3.5-5.4) 07/06/18 01:00 Hgb 13.0 g/dL (12.0-16.0) 07/06/18 01:00 Hct 38.5 % (36.0-47.0) 07/06/18 01:00 MCV 93.2 fL (80.0-100.0) 07/06/18 01:00 MCH 31.4 pg (27.0-34.0) 07/06/18 01:00 MCHC 33.7 g/dL (33.0-35.0) 07/06/18 01:00 RDW 13.3 % (11.6-16.5) 07/06/18 01:00 Plt Count 234 X10^3/uL (150.0-450.0) 07/06/18 01:00 MPV 9.5 fL (7.4-11.0) 07/06/18 01:00 Neut % (Auto) 69.7 % (42.0-75.0) 07/06/18 01:00 Lymph % (Auto) 20.9 % (21.0-51.0) L 07/06/18 01:00 [place] % (Auto) 6.6 % (0.0-13.0) 07/06/18 01:00 Eos % (Auto) 2.1 % (0.9-2.9) 07/06/18 01:00 Baso % (Auto) 0.7 % (0.2-1.0) 07/06/18 01:00 Neut # (Auto) 6.7 x10^3/uL (2.2-4.8) H 07/06/18 01:00 Lymph # (Auto) 2.0 X10^3/uL (1.3-2.9) 07/06/18 01:00 [place] # (Auto) 0.6 x10^3/uL (0.3-0.8) 07/06/18 01:00 Eos # (Auto) 0.2 x10^3/uL (0.0-0.2) 07/06/18 01:00 Baso # (Auto) 0.1 X10^3/uL (0.0-0.1) 07/06/18 01:00 Absolute Nucleated RBC 0.0 /100WBC 07/06/18 01:00 Sodium 142 mmol/L (136-145) 07/06/18 01:00 Corrected Sodium TNP 07/06/18 01:00 Potassium 3.9 mmol/L (3.5-5.1) 07/06/18 01:00 Chloride 107 mmol/L (98-107) 07/06/18 01:00 Carbon Dioxide 27.5 mmol/L (21-32) 07/06/18 01:00 BUN 15 mg/dL (7-18) 07/06/18 01:00 Creatinine 0.79 mg/dL (0.55-1.02) 07/06/18 01:00 Est GFR (MDRD) Af Amer > 60 (>60) 07/06/18 01:00 Est GFR (MDRD) Non-Af > 60 (>60) 07/06/18 01:00 Glucose 99 mg/dL (65-99) 07/06/18 01:00 Calcium 8.8 mg/dL (8.5-10.1) 07/06/18 01:00 Corrected Calcium TNP 07/06/18 01:00 Total Bilirubin 0.10 mg/dL (0.2-1.0) L 07/06/18 01:00 AST 14 Units/L (15-37) L 07/06/18 01:00 ALT 24 Units/L (12-78) 07/06/18 01:00 Alkaline Phosphatase 81 Units/L (46-116) 07/06/18 01:00 Creatine Kinase 155 Units/L (26-192) 07/06/18 01:00 CK-MB (CK-2) < 1.0 ng/mL (0-4.0) 07/06/18 01:00 CK/CKMB % Calc 0.7 % (<4) 07/06/18 01:00 Troponin I < 0.02 ng/mL (0-1.5) 07/06/18 01:00 Total Protein 7.3 g/dL (6.4-8.2) 07/06/18 01:00 Albumin 3.7 g/dL (3.4-5.0) 07/06/18 01:00 Globulin 3.6 g/dL (2.5-4.5) 07/06/18 01:00 Albumin/Globulin Ratio 1.0 Ratio (1.1-2.1) L 07/06/18 01:00 XRAY XRAY Interpreted by: Self XRAY Findings: cXR: cardiomegaly w/o infiltrate EKG Rate: 59 [place]: Normal Rhythm: NSR Block: None Hypertrophy: None ST: Normal Diagnosis Discharge Problem: Hypertension, uncontrolled Chest pain Qualifiers: Chest pain type: precordial pain Qualified Code(s): R07.2 - Precordial pain
[2018-07-06 01:13] LABS: BASOPHILS # (AUTO) 0.1 X10^3/uL (0.0-0.1); BASOPHILS % (AUTO) 0.7 % (0.2-1.0); EOSINOPHILS # (AUTO) 0.2 x10^3/uL (0.0-0.2); EOSINOPHILS % (AUTO) 2.1 % (0.9-2.9); HEMATOCRIT 38.5 % (36.0-47.0); LYMPHOCYTES % (AUTO) 20.9 % (21.0-51.0); MEAN CORPUSCULAR HEMOGLOBIN 31.4 pg (27.0-34.0); MEAN CORPUSCULAR HGB CONC 33.7 g/dL (33.0-35.0); MEAN CORPUSCULAR VOLUME 93.2 fL (80.0-100.0); MEAN PLATELET VOLUME 9.5 fL (7.4-11.0); MONOCYTES # (AUTO) 0.6 x10^3/uL (0.3-0.8); MONOCYTES % (AUTO) 6.6 % (0.0-13.0); NEUTROPHILS # (AUTO) 6.7 x10^3/uL (2.2-4.8); NEUTROPHILS % (AUTO) 69.7 % (42.0-75.0); PLATELET COUNT 234 X10^3/uL (150.0-450.0); RED BLOOD COUNT 4.14 X10^6/uL (3.5-5.4); RED CELL DISTRIBUTION WIDTH 13.3 % (11.6-16.5); WHITE BLOOD COUNT 9.6 X10^3/uL (3.6-10.0)
[2018-07-06 01:25] LABS: BLOOD UREA NITROGEN 15 mg/dL (7-18); CALCIUM 8.8 mg/dL (8.5-10.1); CARBON DIOXIDE 27.5 mmol/L (21-32); CHLORIDE 107 mmol/L (98-107); CREATININE 0.79 mg/dL (0.55-1.02); SODIUM 142 mmol/L (136-145); TROPONIN I < 0.02 ng/mL (0-1.5); eGFR NON BLACK RACES > 60 (>60)
[2018-07-06 01:30] LABS: ALANINE AMINOTRANSFERASE 24 Units/L (12-78); ALBUMIN 3.7 g/dL (3.4-5.0); ALKALINE PHOSPHATASE 81 Units/L (46-116); ASPARTATE AMINO TRANSFERASE 14 Units/L (15-37); CKMB % 0.7 % (<4); CREATINE KINASE 155 Units/L (26-192); CREATINE KINASE MB < 1.0 ng/mL (0-4.0); TOTAL PROTEIN 7.3 g/dL (6.4-8.2)
[2018-07-06] MEDS ORDERED: APRESOLINE INJ 20 MG VIAL IVP ONE (03:16)
[2018-07-06] MEDS ORDERED: NS 100 ML IV 100 ML IV ONE (03:26)
[2018-07-06] MEDS ORDERED: APRESOLINE INJ 20 MG VIAL ONE (03:43)
--- NOTE | 2018-07-06 04:16 | RAD ---
Chest AP portable Indication: Chest pain and left arm pain Comparison: 01/20/2018 Findings: There is no pneumothorax or effusion. There is no consolidation. Heart size is prominent. Monitoring leads obscure detail Impression: Cardiomegaly and COPD change. Developing CHF not excluded. Monitoring leads obscure detail. Reported By:
--- NOTE | 2018-07-06 04:21 | CT ---
CT angiogram chest with contrast Indication: Chest pain Technique: Helical images through the chest without contrast. Coronal and sagittal reformats provided. MIP images provided. Findings: Limited images through the upper abdomen shows no acute abnormality. Review of bone windows shows no osseous lesion. Chest: Aortic arch branch vessels are patent. Heart size is normal. No mediastinal abnormality is seen. Pulmonary artery bolus timing is adequate. No central or segmental filling defect identified. There is no pneumothorax or effusion. There is no consolidation. Impression: 1. No pulmonary embolus 2. No other acute chest process Reported By:
[2018-07-06 05:10] LABS: CKMB % 0.8 % (<4); CREATINE KINASE 134 Units/L (26-192); CREATINE KINASE MB < 1.0 ng/mL (0-4.0); TROPONIN I < 0.02 ng/mL (0-1.5)
[2018-07-06] MEDS: PROTONIX TAB 40 MG PO SCH (08:43)
[2018-07-06] MEDS: BENICAR TAB 40 MG PO SCH (08:43)
[2018-07-06] MEDS ORDERED: ZIAC 5/6.25 MG PO SCH (09:00)
[2018-07-06] MEDS ORDERED: BISOPROLOL HYDROCHLOROTHIAZIDE PO SCH (09:00)
[2018-07-06] MEDS ORDERED: APRESOLINE TAB 25 MG PO SCH (09:00)
[2018-07-06] MEDS ORDERED: APRESOLINE TAB 25 MG PO PRN ×2 (09:25)
[2018-07-06 10:58] LABS: CKMB % 0.8 % (<4); CREATINE KINASE 131 Units/L (26-192); TROPONIN I < 0.02 ng/mL (0-1.5)
[2018-07-06] MEDS ORDERED: LEXAPRO ONE (11:45)
[2018-07-06] MEDS: ZIAC 5/6.25 MG PO SCH (11:50)
[2018-07-06 13:06] VITALS: BMI 30.8
[2018-07-06] MEDS: LEXAPRO PO SCH (14:23)
[2018-07-06 17:12] LABS: CREATINE KINASE 126 Units/L (26-192); CREATINE KINASE MB 1.2 ng/mL (0-4.0); TROPONIN I < 0.02 ng/mL (0-1.5)
[2018-07-07] MEDS: LEXAPRO PO SCH (08:52)
[2018-07-07] MEDS: PROTONIX TAB 40 MG PO SCH (08:52)
[2018-07-07] MEDS: BENICAR TAB 40 MG PO SCH (08:52)
[2018-07-07] MEDS: ZIAC 5/6.25 MG PO SCH (08:52)
[2018-07-07 10:12] VITALS: BP 155/88
== END 2018-07-07 09:35 | disposition home or self-care (01) ==
LOC: ER 00:22 → MED/SURG 00:22
PROVIDERS: ADMIT Internal Medicine; ATTEND Obstetrics & Gynecology Obstetrics
DX: R07.2 Precordial pain; I16.0 Hypertensive urgency; I51.7 Cardiomegaly; R06.02 Shortness of breath; R20.0 Anesthesia of skin; M79.602 Pain in left arm
CPT/HCPCS: 36415; 71010; 71045; 71275; 80053; 82550; 82553; 84484; 85025; 93005; 96365; 96374; 99284; A4222; G0378; J0360; J7050